=== PATIENT | male | born 1975 | race Caucasian/White ===

== ENCOUNTER 2020-01-18 21:36 | Emergency (ER) | payer SELFPAY ==
[2020-01-18] MEDS ORDERED: HALOPERIDOL LACTATE INJ 5 MG/1 ML VIAL IM ONE (22:28)
[2020-01-18] MEDS ORDERED: LORAZEPAM INJ 2 MG/1 ML VIAL IV ONE (22:29)
[2020-01-18] MEDS ORDERED: DIPHENHYDRAMINE HCL 50 MG/ML VIAL IV ONE (22:29)
[2020-01-18] MEDS ORDERED: NORMAL SALINE 1000 ML 1,000 ML IV ONE (22:36)
--- NOTE | 2020-01-18 22:36 | ER Document Report ---
ED General - General Chief Complaint: Unresponsive Stated Complaint: UNRESPONSIVE Time Seen by Provider: 01/18/20 22:16 Primary Care Provider: RAINER CHILDRESS MD [HONORARY] - Follow up as needed - HPI Context: This is a 44-year-old male, presenting to the emergency department by EMS, accompanied by police, for evaluation of combativeness and altered mental status. Patient was reportedly unresponsive at the scene but roused with the use of ammonia inhalant. Patient was uncooperative with EMS crew and refused to answer questions. Initial details are very limited at this time but patient was found to be agitated and fighting police. EMS was called to the scene. Patient is not relating any history. Patient presents to the emergency department agitated, occasionally yelling loudly, using profane language with positive psychomotor agitation. Patient does not answer questions or follow commands. Patient is swinging his upper extremities round and flailing around on the bed and a manner that poses a threat in terms of risk of harm to self or others. This MD ordered physical restraints. Associated symptoms: Other - Unknown Exacerbated by: Other - Unknown Relieved by: Other - None Past Medical History - General Information source: Law Enforcement, Emergency Med Personnel - Social History Smoking Status: Unknown if Ever Smoked Frequency of alcohol use: Unknown Drug Abuse: Other - Unknown Family History: None - unknown Review of Systems - Review of Systems -: Yes ROS unobtainable due to patient's medical condition Physical Exam - Vital signs Vitals: Resp Pulse Ox 12 97 01/18/20 21:41 01/18/20 21:41 - Notes Notes: CONSTITUTIONAL [Vital signs reviewed, Patient appears very agitated, disheveled, diaphoretic, awake and intermittently yelling but not answering questions HEAD [Atraumatic, Normocephalic.] EYES [Eyes are normal to inspection, No discharge from eyes, Extraocular muscles intact, Sclera are normal, Conjunctiva are normal.] ENT Nose examination normal, Mouth normal to inspection.] NECK [Normal ROM, No jugular venous distention, No meningeal signs, no crepitus step- off or deformity.] RESPIRATORY CHEST [Chest is nontender, Breath sounds normal, No respiratory distress.] CARDIOVASCULAR [Tachycardia, No murmurs, Normal S1 S2, No rub, No gallop.] ABDOMEN [Abdomen is nontender, No pulsatile masses, No other masses, Bowel sounds normal, No distension, No peritoneal signs, No hernias.] BACK [There is no CVA Tenderness, There is no tenderness to palpation, Normal inspection.] UPPER EXTREMITY [Inspection normal, No cyanosis, No clubbing, No edema, 2+ radial pulses.] LOWER EXTREMITY [Inspection normal, No cyanosis, No clubbing, No edema, No calf tenderness, 2+ femoral pulses.] NEURO [No focal motor deficits, No focal sensory deficits, unable to evaluate speech since patient is not answering questions] SKIN Skin is cool, moist and pale.] PSYCHIATRIC [Normal affect. ] Course - Re-evaluation Re-evalutation: 01/19/20 03:57 Restraints have been removed. Results of ED MSE discussed with patient. Patient makes eye contact when spoken to and was informed that no acute findings were seen on his work-up other than amphetamines and opiates in his urinalysis. Patient still refuses to interact verbally was noted to schedule when informed that his ED MSE was completed, no emergency medical condition was found and that he would be discharged from the ED. 01/19/20 03:58 - Vital Signs Vital signs: Temp Pulse Resp BP Pulse Ox 98.5 F 10 L 119/88 H 97 01/18/20 22:01 01/18/20 23:01 01/18/20 23:01 01/18/20 21:41 - Laboratory Result Diagrams: 01/18/20 22:11 01/18/20 22:11 Laboratory results interpreted by me: 01/18/20 01/18/20 01/18/20 22:07 22:10 22:11 WBC 14.6 H Lymph % (Auto) 9.9 L Edgar % (Auto) 13.9 H Absolute Neuts (auto) 11.0 H Absolute Monos (auto) 2.0 H Carbon Dioxide Glucose POC Glucose 120 H Total Bilirubin Direct Bilirubin Urine Protein Urine Ketones Salicylates Acetaminophen < 10 L 01/18/20 01/18/20 01/18/20 22:11 22:11 22:11 WBC Lymph % (Auto) Edgar % (Auto) Absolute Neuts (auto) Absolute Monos (auto) Carbon Dioxide 19 L Glucose 126 H POC Glucose Total Bilirubin 1.6 H Direct Bilirubin 0.5 H Urine Protein 100 H Urine Ketones 20 H Salicylates < 1.0 L Acetaminophen - Diagnostic Test Radiology reviewed: Reports reviewed - EKG Interpretation by Me Additional EKG results interpreted by me: 01/18/20 22:41 EKG obtained on 01/18/2020 at 2153 hrs. was interpreted by this MD. Findings: Sinus tachycardia, rate 152, normal axis, P waves are present for QRS complexes, QRS complexes appear narrow, there are no obvious patterns of ST segment elevation, depression or reciprocal changes seen to suggest acute myocardial isc hemia or infarction. Impression sinus tachycardia with nonspecific ST segments. There is no prior EKG readily available for comparison. Discharge - Discharge Clinical Impression: Methamphetamine abuse Condition: Stable Disposition: HOME, SELF-CARE Additional Instructions: Ampetamine Abuse Amphetamines are addicting stimulants. Amphetamines overstimulate the nervous system and give a false feeling of power and mastery. These drugs may be obtained as prescription pills for weight loss, narcolepsy, or attention-deficit disorder. More often they're bought as an illegal street drug, methamphetamine (crank, crystal, speed). Using amphetamines repeatedly can lead to serious medical problems including malnutrition, severe depression, and paranoia. It can take increasing amounts to feel good. Eventually, there will be a "burn out." When you go off amphetamines there is a period of depression that may last for weeks or even months. High doses of amphetamines can cause seizures, confusion, hallucinations, delusions, high blood pressure, muscle damage, heart damage, or sudden . Many times these deadly complications occur even with "normal" doses. Injection of amphetamines is risky for abscesses, endocarditis (heart infe ction), pneumonia, and AIDS. Withdrawal from amphetamines often causes anxiety, depression, and drug cravings. Some users become paranoid and psychotic. There may be cramps, nausea, and vomiting. Many treatment programs are available, but you must make the decision to quit. Medication can be prescribed to control the symptoms of amphetamine toxicity (beta blockers or benzodiazepines). Withdrawal symptoms may require tranquilizers. Return to the Emergency Department without delay if any worse. HOME CARE INSTRUCTIONS & INFORMATION: Thank you for choosing us for your medical needs. We hope you're satisfied with the care you received. After you leave, you must properly care for your problem and, at the same time, observe its progress. Any condition can change. Some illnesses can change rapidly over hours or days. If your condition worsens, return to the Emergency Department or see your physician promptly. ABOUT YOUR X-RAYS AND EKG'S: If you had an EKG or X-rays taken, they have been read by the Emergency Physician. The X-rays and EKG's will also be read by a Radiologist or Ledge Man within 24 hours. If discrepancies are noted, you will be notified by telephone. Please be certain the ED has a correct telephone number & address where you can be reached. Also, realize that some fractures or abnormalities do not show up on initial X-rays. If your symptoms continue, see your physician. ABOUT YOUR LABORATORY TEST: If you had laboratory tests, the results have been reviewed by the Emergency Physician. Some test results (for example cultures) may not be available for several days. You will be contacted if any test result shows you need additional treatment. Please be certain the ED has a correct telephone number and address where you can be reached. ABOUT YOUR MEDICATIONS: You will receive instructions on how to take your medicine on the prescription label you receive. Additional information may be provided by the Pharmacy. If you have questions afterwards, call the ED for clarification or further instructions. Some prescribed medications may cause drowsiness. Do not perform tasks such as driving a car or operating machinery without consulting your Pharmacist. If you feel you need a refill of pain medication, your condition will need re-evaluation. Please do not call for a refill of any medication. ABOUT YOUR SIGNATURE: Signature of this document acknowledges to followin. Understanding that you received emergency treatment and that you may be released before al medical problems are known or treated. Please be certain the ED has a correct phone number & address where you can be reached. 2. Acknowledgement that you will arrange for follow-up care as recommended. 3. Authorization for the Emergency Physician to provide information to your follow-up Physician in order to maximize your care. AT ANY TIME, IF YOUR SYMPTOMS CHANGE SIGNIFICANTLY OR WORSEN OR YOU DEVELOP NEW SYMPTOMS, RETURN TO THE EMERGENCY DEPARTMENT IMMEDIATELY FOR RE-EVALUATION. OUR GOAL IS TO PROVIDE EXCELLENT MEDICAL CARE! WE HOPE THAT WE HAVE MET YOUR EXPECTATIONS DURING YOUR EMERGENCY DEPARTMENT VISIT AND THAT YOU FEEL YOU HAVE RECEIVED EXCELLENT CARE! Referrals: RAINER CHILDERSS MD [HONORARY] - Follow up as needed
[2020-01-18 22:54] LABS: ABSOLUTE LYMPHOCYTES (AUTO) 1.4 10^3/uL (0.5-4.7); BASOPHILS % (AUTO) 0.3 % (0-2); EOSINOPHILS % (AUTO) 0.3 % (0-6); HEMATOCRIT 47.9 % (37.9-51.0); HEMOGLOBIN 16.6 g/dL (13.5-17.0); LYMPHOCYTES % (AUTO) 9.9 % (13-45); MEAN CORPUSCULAR HEMOGLOBIN 32.9 pg (27.0-33.4); MEAN CORPUSCULAR HGB CONC 34.8 g/dL (32.0-36.0); MEAN CORPUSCULAR VOLUME 95 fl (80-97); MONOCYTES % (AUTO) 13.9 % (3-13); PLATELET COUNT 311 10^3/uL (150-450); RED BLOOD COUNT 5.05 10^6/uL (4.35-5.55); SEGMENTED NEUTROPHILS % (AUTO) 75.6 % (42-78); TOTAL CELLS COUNTED % (AUTO) 100 %; WHITE BLOOD COUNT 14.6 10^3/uL (4.0-10.5)
[2020-01-18 22:56] LABS: APPEARANCE,URINE CLEAR; BILIRUBIN,URINE NEGATIVE (NEGATIVE); GLUCOSE, URINE NEGATIVE (NEGATIVE); KETONES,URINE 20 mg/dL (NEGATIVE); LEUKOCYTE ESTERASE,URINE NEGATIVE (NEGATIVE); NITRITE,URINE NEGATIVE (NEGATIVE); PROTEIN,URINE 100 mg/dL (NEGATIVE); URINE SPECIFIC GRAVITY 1.029; UROBILINOGEN,URINE NEGATIVE mg/dL (<2.0)
[2020-01-18 22:58] LABS: COLOR,URINE YELLOW
[2020-01-18 23:01] LABS: ALBUMIN 4.5 g/dL (3.5-5.0); ALKALINE PHOSPHATASE 85 U/L (38-126); ANION GAP 16 (5-19); ASPARTATE AMINO TRANSFERASE 31 U/L (17-59); BILIRUBIN,DIRECT 0.5 mg/dL (0.0-0.4); BILIRUBIN,TOTAL 1.6 mg/dL (0.2-1.3); BLOOD UREA NITROGEN 16 mg/dL (7-20); CALCIUM 9.9 mg/dL (8.4-10.2); CARBON DIOXIDE 19 mmol/L (22-30); CHLORIDE 104 mmol/L (98-107); GLUCOSE 126 mg/dL (75-110); POTASSIUM 4.1 mmol/L (3.6-5.0); TOTAL PROTEIN 7.4 g/dL (6.3-8.2)
[2020-01-18 23:02] LABS: ALCOHOL < 10 mg/dL (NONE DETECTED)
--- NOTE | 2020-01-18 23:11 | RADIOLOGY REPORT (SQ) ---
CLINICAL HISTORY: ams COMPARISON: None. TECHNIQUE: XR CHEST 1 VIEW 01/18/2020 10:31 PM CDT FINDINGS: Cardiac silhouette is normal in size. Lungs are clear without consolidation, atelectasis, mass or edema. There is no pleural effusion. There is no pneumothorax. There are no acute osseous findings. IMPRESSION: Clear lungs.
[2020-01-18 23:12] LABS: URINE BARBITURATES SCREEN NEGATIVE; URINE BENZODIAZEPINES SCREEN NEGATIVE; URINE COCAINE SCREEN NEGATIVE; URINE MARIJUANA (THC) SCREEN NEGATIVE; URINE METHADONE SCREEN NEGATIVE; URINE PHENCYCLIDINE SCREEN NEGATIVE
[2020-01-19 04:26] VITALS: BP 102/76
--- NOTE | 2020-01-19 16:13 | EKG REPORT ---
SEVERITY:- BORDERLINE ECG - SINUS TACHYCARDIA : Confirmed by: Brent Small MD 19-Jan-2020 16:13:09
== END 2020-01-19 04:25 | disposition home or self-care (01) ==
LOC: ER 21:36
DX: F15.10 Other stimulant abuse, uncomplicated (principal); R00.0 Tachycardia, unspecified; Z78.1 Physical restraint status
CPT/HCPCS: 93005; 99285; 96372; 96361; 96374; 96375; 36415; 82962; 80307 ×4; 85025; 80053; 81001; 71045; 93010; J1200; J1630; J2060; J7030